=== PATIENT | male | born 1980 | race African-American/Black ===

== ENCOUNTER 2022-06-15 16:03 | Emergency (ER) | payer SELFPAY ==
[2022-06-15] MEDS ORDERED: predniSONE 20 MG TAB ONE (17:08)
== END 2022-06-15 17:11 | disposition home or self-care (01) ==
LOC: CSHERS 16:03
DX: G51.0 Bell's palsy (principal); K21.9 Gastro-esophageal reflux disease without esophagitis
CPT/HCPCS: 99284; J7512